=== PATIENT | female | born 1925 | race Caucasian/White ===

== ENCOUNTER 2016-07-01 10:42 | Emergency (ER) | payer OTHER ==
[~2016-07-01] VITALS: Ht 152.4 cm; Wt 56.7 kg
[2016-07-01] MEDS ORDERED: PROPRANOLOL HCL20 M1 PO (10:55)
[2016-07-01] MEDS ORDERED: LISINOPRIL-HCT1 EAC2 PO (10:55)
[2016-07-01] MEDS ORDERED: TOPIRAMATE50 M1 PO (10:57)
--- NOTE | 2016-07-01 11:23 | ED MVC/FALL/TRAUMA COMPLAINT ---
History of Present Illness General Chief Complaint: Fall Stated Complaint: FALL, LACERATIONS TO FOREHEAD,NOSE Source: patient, family (DAUGHTER) Exam Limitations: language barrier Vital Signs & Intake/Output Vital Signs & Intake/Output Vital Signs Date Time Temp Pulse Resp B/P Pulse O2 O2 Flow FiO2 Ox Delivery Rate 07/01 1328 97.0 76 20 138/81 96 Room Air Room Air 07/01 1051 95 Room Air Room Air 07/01 1044 96.0 77 20 133/68 95 Room Air Room Air Allergies Coded Allergies: No Known Allergies (07/01/16) Reconcile Medications Amoxicillin 500 MG CAPSULE 1 CAP PO BID INFECTION Lisinopril/Hydrochlorothiazide (Lisinopril-Hctz 10-12.5 MG Tab) 10 MG-12.5 MG TABLET 1 TAB PO DAILY HTN (Reported) Propranolol HCl 20 MG TABLET 1 TAB PO BID HTN (Reported) Topiramate 50 MG TABLET 50 MG PO DAILY HEADACHES (Reported) Triage Note: BIBA FROM HOME S/P TRIP AND FALL GOING INTO THE SHOWER, DAUGHTER PRESENT, PT AND DAUGHTER DENIES LOC, PT ARRIVES AWAKE, ORIENTED, DAUGHTER AT BEDSIDE. PER EMS PT WAS COLLARED, BUT TOOK C-COLLAR OFF. Triage Nurses Notes Reviewed? yes HPI: 89-year-old female here with her daughter brought in by ambulance after a mechanical fall. Daughter was with the patient, she was in the bathroom, turned around to grab her walker and fell forward striking her face on the ground causing a significant laceration to the face and trauma to the nose. There is no loss of consciousness per daughter. History is limited due to patient appetite only speaking. She has no complaints of pain except in the face and nose, there is significant amount of nasal and facial bleeding, nasal swelling and soft tissue deformity. She denies any neck pain, no pain in the upper extremities or lower extremities. She is to get up and walk after the fall. The lacerations were wrapped in bandages by EMS she was placed in a cervical collar. No modifying factors. She is acting appropriately per daughter. She is not on blood thinners (JODI ROSAS) Past History Travel History Traveled to [place] past 21 day No Medical History Any Pertinent Medical History? see below for history Neurological: NONE EENT: NONE Cardiovascular: hypertension Respiratory: NONE Gastrointestinal: NONE Hepatic: NONE Renal: NONE Musculoskeletal: osteoarthritis Psychiatric: NONE Endocrine: NONE Blood Disorders: anemia Cancer(s): NONE Surgical History Surgical History: hip replacement, knee replacement Psychosocial History What is your primary language Armenian Tobacco Use: Never used ETOH Use: denies use Illicit Drug Use: denies illicit drug use Family History Hx Contributory? No (JODI ROSAS) Review of Systems Review of Systems Constitutional: Reports: see HPI. Eyes: Reports: no symptoms. Ears, Nose, Throat, Mouth: Reports: see HPI. Respiratory: Reports: no symptoms. Cardiovascular: Reports: no symptoms. Gastrointestinal/Abdominal: Reports: no symptoms. Genitourinary: Reports: no symptoms. Musculoskeletal: Reports: no symptoms. Skin: Reports: no symptoms. Neurological/Psychological: Reports: no symptoms. All Other Systems: Reviewed and Negative (JODI ROSAS) Physical Exam Physical Exam General Appearance: well developed/nourished Comments: Elderly female looks stated age HEENT: Pupils equally round and reactive to light extraocular motion intact There is a large deep laceration, curvilinear to the forehead measuring approximately 10 cm, transverse down to the gala There are 2 smaller lacerations to the ankle below region and to the bridge of the nose measuring approximately 3 cm and 1 cm respectively. There is nasal deformity, swelling, crepitus with palpation of the patient nose bilaterally. There is a mild active nasal bleeding, intranasal exam is limited due to bleeding, no significant septal hematoma is noted. Suspect septal deviation Neck: Supple, no lymphadenopathy, nontender Back: Nontender Respiratory: No respiratory distress, clear to auscultation bilateral. Heart :regular rate and rhythm no murmur . Abdomen: Soft nontender nondistended Extremities: No edema, full range of motion Neuro: Alert and oriented x3 Psych: Mood affect normal, normal memory normal judgment. Skin: Warm and dry, no rash on exposed skin Core Measures ACS in differential dx? No Severe Sepsis Present: No Septic Shock Present: No (JODI ROSAS) Progress Differential Diagnosis: aoritic dissection, abd injury, C/T/L spine injury, ext injury, ICH, pelvis injury, pnemothorax, spinal cord injury Plan of Care: Orders Procedure Date/time Status CT HEAD WO IV CONTRAST 07/[address] MAXILLOFACIAL W/O CON 07/[address] CERV SPINE WO IV CONTRAST 07/01 1110 Active Diagnostic Imaging: Viewed by Me: CT Scan. Discussed w/RAD: CT Scan. Radiology Impression: PATIENT: JAIME RINCON PRESENT AGE: 89 PATIENT ACCOUNT NO: [id number] : [birth year] LOCATION: [facility] ORDERING PHYSICIAN: JODI VERDIN SERVICE DATE: 07/01/16 EXAM TYPE : CAT - CT CERV SPINE WO IV CONTRAST; CT HEAD WO IV CONTRAST; CT MAXILLOFACIAL W /O CON EXAMINATION: CT HEAD W/O IV CONTRAST CT CERVICAL SPINE W/O IV CONTRAST CT MAXILLOFACIAL W/O IV CONTRAST CLINICAL INFORMATION: 89-year-old female status post fall. COMPARISON: None TECHNIQUE: Head - Contiguous axial imaging of the head was performed from the skull base to the vertex without the administration of intravenous contrast, and axial images reconstructed at 0.625 mm, 2.5 mm and 5 mm slice thickness. Cervical spine and facial bones- Volumetric, helical CT acquisition of the cervical spine was obtained without contrast; also, standard imaging of the facial bones was performed. In addition to the standard set of axial images, multiplanar reformatted images were provided in the coronal and sagittal imaging planes. DLP: 1641 mGy-cm (total) FINDINGS: HEAD: No intracranial hemorrhage, extra-axial fluid collection, focal mass effect or midline shift. The chirinos-white matter differentiation is preserved. Prominent perivascular spaces are seen inferior to level of the basal ganglia. Mild atrophy of cerebral hemispheres associated with symmetric prominence of ventricles, sulci and cisterns. Atherosclerotic calcification of carotid siphons and left vertebral artery. The calvarium is intact and the mastoid air cells and middle ear cavities are clear. FACIAL BONES: Mildly displaced fracture of the right nasal bone and minimally displaced fracture of the left nasal bone with surrounding soft tissue swelling and soft tissue emphysema. There is a minimally displaced fracture in the perpendicular plate of the ethmoid. The orbital rims and jensen, including lamina papyracea, are intact. The retrobulbar fat planes are maintained. The extraocular muscles, optic nerves and orbital apices are unremarkable. There have been lens extractions from the globes. The mandible, maxilla, zygomatic arches and pterygoid plates are intact. There are no air- fluid levels within the paranasal sinuses. CERVICAL SPINE: No acute fractures within anterior or posterior elements of the degenerated, malaligned cervical spine. No prevertebral soft tissue edema. There is degenerative osseous spurring at the atlantodens articulation. At C2-C3, there is zybnwceu-yc-pvmhfa facet osteoarthritis and degenerative disc space narrowing with 0.3 cm anterior subluxation of C2 on C3. At C3-C4, there is mild facet arthropathy and moderate disc degeneration with 0.2 cm retrolisthesis of C3 on C4. At C4-C5, there is moderate degenerative disc space loss, traction osteophyte formation, and 0.2 cm retrolisthesis of C4 on C5. At C5-C6, there is facet arthropathy and disc degenerative change with 0.4 cm anterolisthesis of C5 on C6. At C6-C7, there is pxzjwand-xs-mintrx degenerative disc disease and uncovertebral joint hypertrophy with osteophytes producing mild left-sided foraminal narrowing at this level. At C7-T1, there is facet osteoarthritis and disc degeneration with 0.4 cm anterolisthesis of C7 on T1. No acute findings in the visualized lung apices. Incidentally noted is a 0.9 cm nodule within the left thyroid lobe. IMPRESSION: 1. No acute intracranial pathology. 2. Mildly displaced fracture of the right nasal bone and minimally displaced fracture of the left nasal bone. There is a minimally displaced fracture in the perpendicular plate of the ethmoid, as well. Otherwise, facial bones are intact. 3. No acute findings within the degenerated, malaligned cervical spine. DICTATED BY: JOHN CRAIG MD DATE/TIME DICTATED: 1143 BALANCE STAFF INSPECTOR:DORIS Comments: After verbal consent was obtained the laceration area was anesthetized with lidocaine 2% with epinephrine approximately 10 mL was used throughout the multiple lacerations to the forehead and the nasal region Chlorhexidine prep was used to clean the area The wound was copiously irrigated with normal saline. The wound was inspected and no foreign bodies or tendon lacerations were noted on exam and there is no functional deficit. There is no arterial bleeding. 5 -0 nylon running locking sutures were placed Approximately 12 Sutures in total. Deep sutures were placed as well using 5-0 Vicryl. Other smaller lacerations were closed with 5-0 Vicryl absorbable sutures and the skin, approximately 6 sutures total Bacitracin and sterile dressing was applied. Distally the neurovascular status was intact postprocedure. The patient tolerated the procedure well without complications. Infection and risk of foreign body or tendon laceration was discussed with patient. Follow-up instructions and wound care was discussed. (JODI ROSAS) Departure Departure Disposition: HOME OR SELF CARE Condition: Stable Clinical Impression Primary Impression: Complex laceration of face Secondary Impressions: Cervical strain Qualifiers: Encounter type: initial encounter Qualified Code: S16.1XXA - Strain of muscle, fascia and tendon at neck level, initial encounter Fall Head injury Qualifiers: Encounter type: initial encounter Qualified Code: S09.90XA - Unspecified injury of head, initial encounter Nasal fracture Qualifiers: Encounter type: initial encounter Fracture type: open Qualified Code: S02.2XXB - Fracture of nasal bones, initial encounter for open fracture Referrals: DAVID HILARIO,JAYANT ROSALES MD,CB (PCP/Family) Referred to [facility] as new patient No Additional Instructions: Follow-up in 7-10 days either with your doctor or return to the emergency room for wound check and removal of sutures/eric Take antibiotics for prevention of infection due to the open nasal fracture Follow-up with ENT for nasal fracture and once 2 weeks Watch for signs of infection: Redness, swelling, pain, fever, discharge The possibility of a tendon laceration or foreign body exists. Please watch for signs of infection and return with any concerns Departure Forms: Customer Survey General Discharge Information Prescriptions: Current Visit Scripts Amoxicillin 1 CAP PO BID #10 CAP (JODI ROSAS) PA/COMMUNICATIONS PLANNER Co-Sign Statement Statement: ED Attending supervision documentation- [X] I saw and evaluated the patient. I have also reviewed all the pertinent lab results and diagnostic results. I agree with the findings and the plan of care as documented in the PA's/COMMUNICATIONS PLANNER's documentation. [X] I have reviewed the ED Record and agree with the PA's/COMMUNICATIONS PLANNER's documentation. [] Additions or exceptions (if any) to the PAs/COMMUNICATIONS PLANNER's note and plan are summarized below: [] (EVELYNE HILARIO,SUZAN)
--- NOTE | 2016-07-01 12:09 | CT SCAN REPORT ---
EXAMINATION: CT HEAD W/O IV CONTRAST CT CERVICAL SPINE W/O IV CONTRAST CT MAXILLOFACIAL W/O IV CONTRAST CLINICAL INFORMATION: 89-year-old female status post fall. COMPARISON: None TECHNIQUE: Head - Contiguous axial imaging of the head was performed from the skull base to the vertex without the administration of intravenous contrast, and axial images reconstructed at 0.625 mm, 2.5 mm and 5 mm slice thickness. Cervical spine and facial bones- Volumetric, helical CT acquisition of the cervical spine was obtained without contrast; also, standard imaging of the facial bones was performed. In addition to the standard set of axial images, multiplanar reformatted images were provided in the coronal and sagittal imaging planes. DLP: 1641 mGy-cm (total) FINDINGS: HEAD: No intracranial hemorrhage, extra-axial fluid collection, focal mass effect or midline shift. The chirinos-white matter differentiation is preserved. Prominent perivascular spaces are seen inferior to level of the basal ganglia. Mild atrophy of cerebral hemispheres associated with symmetric prominence of ventricles, sulci and cisterns. Atherosclerotic calcification of carotid siphons and left vertebral artery. The calvarium is intact and the mastoid air cells and middle ear cavities are clear. FACIAL BONES: Mildly displaced fracture of the right nasal bone and minimally displaced fracture of the left nasal bone with surrounding soft tissue swelling and soft tissue emphysema. There is a minimally displaced fracture in the perpendicular plate of the ethmoid. The orbital rims and jensen, including lamina papyracea, are intact. The retrobulbar fat planes are maintained. The extraocular muscles, optic nerves and orbital apices are unremarkable. There have been lens extractions from the globes. The mandible, maxilla, zygomatic arches and pterygoid plates are intact. There are no air-fluid levels within the paranasal sinuses. CERVICAL SPINE: No acute fractures within anterior or posterior elements of the degenerated, malaligned cervical spine. No prevertebral soft tissue edema. There is degenerative osseous spurring at the atlantodens articulation. At C2-C3, there is jsemoyto-xe-ybcght facet osteoarthritis and degenerative disc space narrowing with 0.3 cm anterior subluxation of C2 on C3. At C3-C4, there is mild facet arthropathy and moderate disc degeneration with 0.2 cm retrolisthesis of C3 on C4. At C4-C5, there is moderate degenerative disc space loss, traction osteophyte formation, and 0.2 cm retrolisthesis of C4 on C5. At C5-C6, there is facet arthropathy and disc degenerative change with 0.4 cm anterolisthesis of C5 on C6. At C6-C7, there is oytxocag-bv-aooeep degenerative disc disease and uncovertebral joint hypertrophy with osteophytes producing mild left-sided foraminal narrowing at this level. At C7-T1, there is facet osteoarthritis and disc degeneration with 0.4 cm anterolisthesis of C7 on T1. No acute findings in the visualized lung apices. Incidentally noted is a 0.9 cm nodule within the left thyroid lobe. IMPRESSION: 1. No acute intracranial pathology. 2. Mildly displaced fracture of the right nasal bone and minimally displaced fracture of the left nasal bone. There is a minimally displaced fracture in the perpendicular plate of the ethmoid, as well. Otherwise, facial bones are intact. 3. No acute findings within the degenerated, malaligned cervical spine.
[2016-07-01] MEDS ORDERED: AMOXICILLIN500 M2 PO (13:16)
[2016-07-01 13:28] VITALS: BP 138/81
== END 2016-07-01 13:30 ==
LOC: ERH 10:42
DX: S02.2XXA Fracture of nasal bones, initial encounter for closed fracture (principal); S01.81XA Laceration without foreign body of other part of head, initial encounter; S16.1XXA Strain of muscle, fascia and tendon at neck level, initial encounter; S09.90XA Unspecified injury of head, initial encounter; W19.XXXA Unspecified fall, initial encounter; Y92.002 Bathroom of unspecified non-institutional (private) residence as the place of occurrence of the external cause